=== PATIENT | female | born 1945 | race Caucasian/White ===

== ENCOUNTER → 2017-12-09 | Outpatient (CLI) | payer MEDICARE, MEDICAID ==
[2017-12-09 15:06] LABS: APPEARANCE,URINE SLIGHTLY-CLOUDY; BILIRUBIN,URINE NEGATIVE (NEGATIVE); COLOR,URINE YELLOW; GLUCOSE, URINE NEGATIVE (NEGATIVE); KETONES,URINE TRACE mg/dL (NEGATIVE); LEUKOCYTE ESTERASE,URINE TRACE (NEGATIVE); NITRITE,URINE NEGATIVE (NEGATIVE); PROTEIN,URINE NEGATIVE (NEGATIVE); UROBILINOGEN,URINE NEGATIVE mg/dL (<2.0)
[2017-12-09 15:17] LABS: HEMATOCRIT 30.9 % (36.0-47.0); MEAN CORPUSCULAR HEMOGLOBIN 25.9 pg (27.0-33.4); MEAN CORPUSCULAR HGB CONC 32.6 g/dL (32.0-36.0); MEAN CORPUSCULAR VOLUME 80 fl (80-97); PLATELET COUNT 228 10^3/uL (150-450); RED BLOOD COUNT 3.88 10^6/uL (3.72-5.28); RED CELL DISTRIBUTION WIDTH 17.2 % (11.5-14.0); WHITE BLOOD COUNT 5.8 10^3/uL (4.0-10.5)
[2017-12-09 15:32] LABS: ANION GAP 11 (5-19); BLOOD UREA NITROGEN 16 mg/dL (7-20); CALCIUM 9.8 mg/dL (8.4-10.2); CARBON DIOXIDE 26 mmol/L (22-30); CHLORIDE 107 mmol/L (98-107); GLUCOSE 108 mg/dL (75-110); POTASSIUM 5.4 mmol/L (3.6-5.0); SODIUM 144.3 mmol/L (137-145)
== END ==
LOC: OD 13:55
PROVIDERS: ATTEND Internal Medicine Nephrology
DX: I12.9 Hypertensive chronic kidney disease with stage 1 through stage 4 chronic kidney disease, or unspecified chronic kidney disease (principal); N18.3 Chronic kidney disease, stage 3 (moderate); E11.9 Type 2 diabetes mellitus without complications
CPT/HCPCS: 36415; 80048; 81001; 85027

== ENCOUNTER → 2018-01-15 | Outpatient (CLI) | payer MEDICARE, MEDICAID ==
[2018-01-15 15:32] LABS: HEMATOCRIT 31.5 % (36.0-47.0); HEMOGLOBIN 10.5 g/dL (12.0-15.5); MEAN CORPUSCULAR HEMOGLOBIN 26.2 pg (27.0-33.4); MEAN CORPUSCULAR HGB CONC 33.4 g/dL (32.0-36.0); MEAN CORPUSCULAR VOLUME 78 fl (80-97); PLATELET COUNT 282 10^3/uL (150-450); RED BLOOD COUNT 4.02 10^6/uL (3.72-5.28); RED CELL DISTRIBUTION WIDTH 16.5 % (11.5-14.0); WHITE BLOOD COUNT 9.2 10^3/uL (4.0-10.5)
[2018-01-15 15:47] LABS: APPEARANCE,URINE CLEAR; BILIRUBIN,URINE NEGATIVE (NEGATIVE); COLOR,URINE STRAW; GLUCOSE, URINE NEGATIVE (NEGATIVE); KETONES,URINE NEGATIVE (NEGATIVE); LEUKOCYTE ESTERASE,URINE NEGATIVE (NEGATIVE); NITRITE,URINE NEGATIVE (NEGATIVE); PROTEIN,URINE NEGATIVE (NEGATIVE); URINE SPECIFIC GRAVITY 1.011; UROBILINOGEN,URINE NEGATIVE mg/dL (<2.0)
[2018-01-15 15:52] LABS: ANION GAP 12 (5-19); BLOOD UREA NITROGEN 15 mg/dL (7-20); CALCIUM 9.9 mg/dL (8.4-10.2); CARBON DIOXIDE 25 mmol/L (22-30); CHLORIDE 105 mmol/L (98-107); GLUCOSE 75 mg/dL (75-110); IRON(TIBC) 44.1 ug/dL (37-170); POTASSIUM 5.2 mmol/L (3.6-5.0); SODIUM 142.4 mmol/L (137-145)
[2018-01-16 16:42] LABS: MICROALBUMIN URINE <3.0 ug/mL (Not Estab.)
== END ==
LOC: OD 14:10
PROVIDERS: ATTEND Internal Medicine Nephrology
DX: E11.22 Type 2 diabetes mellitus with diabetic chronic kidney disease (principal); I12.9 Hypertensive chronic kidney disease with stage 1 through stage 4 chronic kidney disease, or unspecified chronic kidney disease; N18.3 Chronic kidney disease, stage 3 (moderate); D64.9 Anemia, unspecified
CPT/HCPCS: 80048; 81001; 82043; 82570; 82728; 83540; 83550; 84165; 84443; 85027

== ENCOUNTER 2019-01-05 06:19 | Day surgery (SDC) | payer MEDICARE, MEDICAID ==
[~2019-01-05 06:19] MED LIST: KETOROLAC TROMETHAMINE 0.45% 4 DROP/0.4 ML DROPERETTE OS PRN
[2019-01-05] MEDS: CYCLOPENTOLATE 0.2%/PHENYLEPHRINE 1% OPH SOLN 2 ML OS PRN ×3 (07:16→07:36)
[2019-01-05] MEDS: BESIFLOXACIN HCL 0.6% OPH SUSP 5 ML BOTTLE OS PRN ×4 (07:16→08:16)
[2019-01-05] MEDS: TROPICAMIDE 1% OPH SOLN 3 ML OS PRN ×3 (07:16→07:36)
[2019-01-05] MEDS ORDERED: EPINEPHRINE INJ/PF 1 MG/1 ML AMPULE ONE (07:16)
[2019-01-05] MEDS: TETRACAINE HCL 0.5% OPH SOLN 0.6 ML DROPERETTE OS PRN ×4 (07:17→07:52)
[2019-01-05] MEDS ORDERED: ONDANSETRON HCL INJ/PF 4 MG/2 ML SDV ONE (07:19)
[2019-01-05] MEDS ORDERED: MIDAZOLAM 2 MG/2 ML INJ ONE (07:19)
[2019-01-05] MEDS ORDERED: FENTANYL CITRATE INJ/PF 100 MCG/2 ML AMPUL ONE (07:19)
[2019-01-05] MEDS: BUPIVACAINE HCL 0.75% INJ/PF (7.5 MG/1 ML) 10 ML SDV OS PRN ×2 (07:54)
[2019-01-05] MEDS: LIDOCAINE 4% INJ/PF (40 MG/ML) 5 ML AMPUL OS PRN ×2 (07:54)
[2019-01-05] MEDS: PHENYLEPHRINE/KETOROLAC 1%-0.3% 4 ML VIAL ONE ×2 (08:05)
[2019-01-05] MEDS: CHONDR SU A NA/HYALUR INTRAOC KIT (SURGICARE) ONE ×2 (08:05)
[2019-01-05] MEDS: LIDOCAINE 1% INJ-PF (10 MG/ML) 30 ML SDV ONE ×2 (08:05)
[2019-01-05] MEDS: DORZOLAMIDE HCL 2%/TIMOLOL MALEAT 0.5% OPH SOLN 10 ML OS PRN ×2 (08:16)
--- NOTE | 2019-01-05 08:35 | [facility] OPERATIVE REPORT E ---
[facility] Operative Report NAME: HARI REYES AGE: 73Y DATE OF SURGERY: 01/05/2019 ROOM: PREOPERATIVE DIAGNOSIS: CATARACT, LEFT EYE. POSTOPERATIVE DIAGNOSIS: CATARACT, LEFT EYE. PROCEDURE PERFORMED: PHACOEMULSIFICATION WITH POSTERIOR CHAMBER INTRAOCULAR LENS, LEFT EYE. SURGEON: GEORGE SIMS MD ANESTHESIA: TOPICAL WITH MAC PLUS INTRAOCULAR LIDOCAINE AND OMIDRIA IN THE IRRIGATION SOLUTION. PROCEDURE: The patient was brought to the Operating Room and placed on the operative table. Following tetracaine drops, topical anesthesia was administered. This consisted of instrument wipe pledgets soaked in a solution of 4% Xylocaine mixed with 0.75% Marcaine in a 1:2 ratio. A 2 x 1 cm pledget was placed in the superior fornix. A 1 x 1 cm pledget was placed in the inferior fornix. The eye was patched shut for 5 minutes. The patch was removed. The eye was sterilely prepped and draped in the usual manner. Lid speculum was placed in the eye. The pledgets were removed. 4-0 black silk sutures were placed around the superior and the inferior rectus muscles to be used as traction. A conjunctival peritomy was made at the 10 o'clock position. Hemostasis was obtained with bipolar cautery. A posterior limbal groove was created using a crescent knife and dissected anteriorly towards the cornea. A sharp point blade was used to create a paracentesis site at the 2 o'clock position. A 2.4 mm keratome was used to enter the anterior chamber through the groove. Viscoelastic was injected into the anterior chamber. An anterior capsulotomy was performed using Utrata forceps in a capsulorrhexis fashion. Hydrodissection and hydrodelineation were performed. Phacoemulsification was performed in sdacod-dtf-oseyihg technique. A total of 7.8 CDE phaco time was used. Following this, the I/A unit was used to remove residual cortex. Viscoelastic was injected into the capsular bag. Intraocular lens model SN60WF, 22.5 diopters, serial number [id number] was placed in the capsular bag. The I/A unit was used to remove residual viscoelastic. The wound was seen to be watertight under high and low pressure, and no sutures were placed. The intraocular lens was well centered. The pressure was adjusted in the eye to normal pressure. The 4-0 black silk sutures and lid speculum were removed. The eye was shielded after Besivance drops were placed. The patient tolerated the procedure well and was sent to the Recovery Room in good condition. DICTATING PHYSICIAN: GEORGE SIMS M.D. DICTATING PHYSICIAN: GEORGE SIMS M.D. [id number] [facility]#: [id number] ID: [id number] JOB#: [id number] ACCT: [id number] cc:GEORGE SIMS M.D. >
--- NOTE | 2019-01-05 08:40 | [facility] DISCHARGE SUMMARY E ---
[facility] Discharge Summary NAME: HARI REYES AGE: 73Y ADMITTED: 01/05/2019 DISCHARGED: 01/05/2019 FINAL DIAGNOSIS: CATARACT, LEFT EYE HOSPITAL COURSE: The patient is a 73-year-old lady who underwent uneventful cataract extraction with intraocular lens implant, left eye on 01/05/19. She will be discharged to home. She is instructed to resume preoperative medications, take Tylenol as needed for discomfort, to keep her eye shielded, to use Durezol, PROLENSA and Besivance at 3 p.m. and 8 p.m., and to follow up in my office in 1 day. DICTATING PHYSICIAN: GEORGE SIMS M.D. [id number] Y#: [id number] ID: [id number] JOB#: [id number] ACCT: [id number] cc:GEORGE SIMS M.D. >
== END 2019-01-05 09:04 | disposition home or self-care (01) ==
LOC: SC 06:19
PROVIDERS: ATTEND Ophthalmology
DX: H25.813 Combined forms of age-related cataract, bilateral (principal); E11.3291 Type 2 diabetes mellitus with mild nonproliferative diabetic retinopathy without macular edema, right eye; H31.091 Other chorioretinal scars, right eye; H31.092 Other chorioretinal scars, left eye; H04.123 Dry eye syndrome of bilateral lacrimal glands; Z96.1 Presence of intraocular lens; H43.812 Vitreous degeneration, left eye; H35.372 Puckering of macula, left eye; R01.1 Cardiac murmur, unspecified; K21.9 Gastro-esophageal reflux disease without esophagitis; E11.9 Type 2 diabetes mellitus without complications; E78.5 Hyperlipidemia, unspecified; I10 Essential (primary) hypertension; D64.9 Anemia, unspecified; Z87.891 Personal history of nicotine dependence; Z79.4 Long term (current) use of insulin; Z79.84 Long term (current) use of oral hypoglycemic drugs; Z79.899 Other long term (current) drug therapy
CPT/HCPCS: 66984; 82962; V2632; J2250; J3490 ×4; A9270; J3010; J2405; C9447; J0171